=== PATIENT | female | born 2000 | race Hispanic/Latino ===

== ENCOUNTER 2018-04-06 14:53 | Emergency (ER) | payer SELFPAY ==
[~2018-04-06] VITALS: Ht 162.6 cm; Wt 70.3 kg
[2018-04-06 15:59] LABS: ALBUMIN 4.1 g/dL (3.5-5.0); BILIRUBIN,DIRECT 0.3 mg/dL (0.0-0.5)
[2018-04-06 16:50] VITALS: BP 106/60
== END 2018-04-06 16:52 | disposition home or self-care (01) ==
LOC: ER 14:53
DX: R10.13 Epigastric pain (principal); R11.2 Nausea with vomiting, unspecified; K29.20 Alcoholic gastritis without bleeding
CPT/HCPCS: 36415; 80076; 83690; 99283